=== PATIENT | female | born 1975 | race Caucasian/White ===

== ENCOUNTER 2016-04-24 12:20 | Emergency (ER) | payer OTHER ==
[~2016-04-24] VITALS: Ht 154.9 cm; Wt 59.0 kg
[2016-04-24] MEDS ORDERED: SODIUM CHLORIDE 0.9% 1,000 ML IVB ONE (12:32)
[2016-04-24 12:45] VITALS: BP 129/82
[2016-04-24 13:26] LABS: Basophils # (auto) 0 uL; Basophils % (auto) 1.2 % (0.0-2.0); DEFINITIVE VIEW TRANSMISSION; Eosinophils # (auto) 0.1 uL; Eosinophils % (auto) 2.7 % (0.0-7.0); Hematocrit 29.1 % (36.0-46.0); Hemoglobin 8.8 g/dL (12.2-16.2); Lymphocytes # (auto) 0.9 uL; Lymphocytes % (auto) 23.5 % (10.0-50.0); Mean Corpuscular Hemoglobin 19.4 pg (28.0-32.0); Mean Corpuscular Hgb Conc. 30.1 g/dL (32.0-36.0); Mean Corpuscular Volume 64.4 fL (80.0-100.0); Mean Platelet Volume 7.8 fL (7.4-10.4); Monocytes # (auto) 0.2 uL; Monocytes % (auto) 5.8 % (0.0-12.0); Neutrophils # (auto) 2.7 uL; Neutrophils % (auto) 66.8 % (37.0-80.0); Platelet Count (auto) 423 10^3/uL (140-450)
[2016-04-24 13:27] LABS: Red Cell Distribution Width 21.5 % (11.6-16.0)
[2016-04-24 13:31] LABS: Albumin 4.3 g/dL (3.4-5.0); Alkaline Phosphatase 47 U/L (45-117); Anion Gap 14 (5-15); Anisocytosis Moderate; Aspartate Aminotransferase 8 U/L (15-37); BUN/Creatinine Ratio 7.3; Bilirubin, Total 0.2 mg/dL (0.2-1.0); Blood Urea Nitrogen 6 mg/dL (7-18); Calcium 8.8 mg/dL (8.5-10.1); Carbon Dioxide 24 mmol/L (21-32); Chloride 104 mmol/L (98-107); GFR African American 98 mL/min; GFR Non-African American 81 mL/min; Glucose 124 mg/dL (74-106); Hypochromia Marked; Microcytosis Marked; Platelet Estimate Adequate; Potassium 3.7 mmol/L (3.5-5.1); Sodium 142 mmol/L (136-145); Total Protein 7.7 g/dL (6.4-8.2)
== END 2016-04-24 15:52 | disposition home or self-care (01) ==
LOC: EDUNIT# 12:20 → ER 12:25
DX: R41.82 Altered mental status, unspecified (principal); R53.1 Weakness
CPT/HCPCS: 36415; 80053; 80320; 85025; 93005; 94761; 96360; 99285; G0434

== ENCOUNTER → 2016-06-19 | Outpatient (CLI) | payer BC, OTHER | END | disposition home or self-care (01) | LOC: LAB 09:22 | PROVIDERS: ATTEND Internal Medicine Cardiovascular Disease | DX: N95.1 Menopausal and female climacteric states (principal); E07.89 Other specified disorders of thyroid; E34.9 Endocrine disorder, unspecified | CPT/HCPCS: 36415; 82306; 82607; 82670; 83001; 84403; 84436; 84443; 84480; 84481; 86376 ==

== ENCOUNTER → 2016-06-20 | Outpatient (CLI) | payer BC | END | disposition home or self-care (01) | LOC: Rad HDHVI 13:25 | PROVIDERS: ATTEND Internal Medicine Cardiovascular Disease | DX: I07.1 Rheumatic tricuspid insufficiency (principal) | CPT/HCPCS: 93306 ==

== ENCOUNTER → 2016-07-17 | Outpatient (CLI) | payer BC ==
[~2016-07-17] VITALS: Ht 152.4 cm; Wt 63.5 kg
== END | disposition home or self-care (01) ==
LOC: Rad HDHVI 08:25
PROVIDERS: ATTEND Internal Medicine Cardiovascular Disease
DX: I10 Essential (primary) hypertension (principal); Z98.0 Intestinal bypass and anastomosis status; Z82.49 Family history of ischemic heart disease and other diseases of the circulatory system
CPT/HCPCS: 78452; 93017; 96374; A9500

== ENCOUNTER 2016-10-05 06:06 | Inpatient (IN) | payer BC ==
[2016-10-02 13:09] LABS: CONDITION Y; DEFINITIVE SEE PRINTOUT; Hematocrit 29.3 % (36.0-46.0); Hemoglobin 8.9 g/dL (12.2-16.2); Mean Corpuscular Hemoglobin 19.1 pg (28.0-32.0); Mean Corpuscular Hgb Conc. 30.4 g/dL (32.0-36.0); Mean Platelet Volume 8.2 fL (7.4-10.4); Platelet Count (auto) 351 10^3/uL (140-450); Red Cell Distribution Width 19.7 % (11.6-16.0); SUSPECT SEE PRINTOUT; White Blood Cell 4.4 10^3/uL (4.4-10.8)
[2016-10-02 13:16] LABS: Urine Bilirubin Negative (Negative); Urine Color Yellow (Yellow); Urine Glucose Normal (Normal); Urine Ketone Negative (Negative); Urine Nitrite Negative (Negative); Urine RBC 2 /hpf (0 - 4); Urine Squamous Epithelial Cell MOD /hpf (<5); Urine pH 7.5 (5.0-8.0)
[2016-10-02 13:19] LABS: Urine Blood 2+ /uL (Negative)
[2016-10-02 13:23] LABS: INR 0.99 (0.9-1.15); Partial Thromboplastin Time 21.7 sec (22.64-33.71); Prothrombin Time 10.8 sec (9.37-12.3)
[2016-10-02 13:30] LABS: Metamyelocytes % 0; Myelocytes % 0; Promyelocytes % 0; Reactive Lymphocytes 0
[2016-10-02 13:37] LABS: Albumin 4.2 g/dL (3.4-5.0); BUN/Creatinine Ratio 17.9; Bilirubin, Total 0.3 mg/dL (0.2-1.0); Calcium 8.8 mg/dL (8.5-10.1); Potassium 3.5 mmol/L (3.5-5.1); Total Protein 8.4 g/dL (6.4-8.2)
[2016-10-02 13:56] LABS: Anisocytosis Moderate
[2016-10-02 13:57] LABS: Hypochromia Marked; Microcytosis Marked; Platelet Estimate Adequate
[~2016-10-05] VITALS: Ht 152.4 cm; Wt 62.0 kg
[~2016-10-05 06:06] MED LIST: CHOL1TAB29 PO; FLUO20CA19 PO; THYR60TA2 PO
[2016-10-05] MEDS ORDERED: ceFAZolin 1GM/50ML D5W 50 ML IV ONE ×2 (06:26→07:30)
[2016-10-05] MEDS ORDERED: LIDOCAINE 1% HCL (LOCAL ANESTH.) INJ 20ML MDV ONE (06:46)
[2016-10-05] MEDS ORDERED: LIDOCAINE W/ EPINEPHRINE 1 % INJ 30ML ONE (06:46)
[2016-10-05] MEDS ORDERED: BUPIVACAINE 0.25% INJ 50ML VIAL ONE (06:47)
[2016-10-05] MEDS ORDERED: GLYCOPYRROLATE 0.2 MG/ML 1ML VIAL IV ONE (07:01)
[2016-10-05] MEDS ORDERED: PHENYLEPHRINE HCL 10 MG/ML VL IV ONE (07:01)
[2016-10-05] MEDS ORDERED: ONDANSETRON HCL 4 MG/2 ML VIAL IV PRN (07:30)
[2016-10-05] MEDS: SODIUM CHLORIDE 0.9% 1,000 ML IV SCH ×2 (07:30→15:40)
[2016-10-05] MEDS ORDERED: NITROGLYCERIN 0.4 MG SL TAB SL PRN (07:30)
[2016-10-05] MEDS ORDERED: ACETAMINOPHEN 500 MG TAB PO PRN (07:30)
[2016-10-05] MEDS ORDERED: MORPHINE SULF INJ 2 MG/ML SYRINGE 1ML IV PRN ×2 (07:30→09:30)
[2016-10-05] MEDS ORDERED: MIDAZOLAM HCL 1MG/1ML-2 ML VIAL ONE (08:08)
[2016-10-05] MEDS ORDERED: fentaNYL CITRATE 5 ML ONE (08:08)
[2016-10-05] MEDS ORDERED: MEPERIDINE HCL (50 MG/ML) 1 ML VIAL ONE (08:08)
[2016-10-05] MEDS ORDERED: fentaNYL CITRATE 100 MCG/2 ML VL ONE (08:08)
[2016-10-05] MEDS ORDERED: DEXAMETHASONE SOD PHOS 10MG/1ML VIAL INJ ONE (08:55)
[2016-10-05] MEDS ORDERED: PROPOFOL 10 MG/ML 20 ML IV ONE (08:55)
[2016-10-05] MEDS ORDERED: ROCURONIUM 10MG/ML 10ML VIAL IV ONE (08:55)
[2016-10-05] MEDS ORDERED: MIDAZOLAM HCL 1MG/1ML-2 ML VIAL IV PRN (09:30)
[2016-10-05] MEDS ORDERED: KETOROLAC TROMETH 30 MG/ML 1ML VIAL IV ONE (09:30)
[2016-10-05] MEDS ORDERED: LABETALOL HCL 5 MG/ML 4ML SYRINGE IV PRN (09:30)
[2016-10-05] MEDS ORDERED: ONDANSETRON HCL 4 MG/2 ML VIAL IV ONE (09:30)
[2016-10-05] MEDS ORDERED: ePHEDrine SULFATE 50 MG/ML AMP IV PRN (09:30)
[2016-10-05] MEDS ORDERED: METHYLENE BLUE 0.5% 5MG/ML 10ml AMP IV ONE (10:33)
[2016-10-05] MEDS ORDERED: NEOSTIGMINE 1 MG/ML INJ (10mg/10ML VIAL) ONE (10:50)
[2016-10-05] MEDS ORDERED: LIDOCAINE HCL (LOCAL ANESTH.) 0.5 % 50ML MDV IJ ONE (10:52)
[2016-10-05] MEDS ORDERED: GLYCOPYRROLATE 0.2 MG/ML 1ML VIAL ONE (10:52)
[2016-10-05] MEDS: HYDROmorphone HCL 2 MG/ML VL IV PRN ×2 (11:38→11:48)
[2016-10-05 11:57] LABS: Basophils # (auto) 0 uL; Basophils % (auto) 0.4 % (0.0-2.0); CONDITION Y; DEFINITIVE SEE PRINTOUT; Eosinophils # (auto) 0.1 uL; Eosinophils % (auto) 0.8 % (0.0-7.0); Hematocrit 26.1 % (36.0-46.0); Hemoglobin 8.2 g/dL (12.2-16.2); Lymphocytes # (auto) 1.3 uL; Lymphocytes % (auto) 10.6 % (10.0-50.0); Mean Corpuscular Hemoglobin 19.6 pg (28.0-32.0); Mean Corpuscular Hgb Conc. 31.2 g/dL (32.0-36.0); Mean Corpuscular Volume 62.8 fL (80.0-100.0); Mean Platelet Volume 8.4 fL (7.4-10.4); Monocytes # (auto) 0.2 uL; Monocytes % (auto) 1.3 % (0.0-12.0); Neutrophils # (auto) 10.9 uL; Neutrophils % (auto) 86.9 % (37.0-80.0); Platelet Count (auto) 300 10^3/uL (140-450); Red Cell Distribution Width 19.6 % (11.6-16.0); White Blood Cell 12.5 10^3/uL (4.4-10.8)
[2016-10-05] MEDS ORDERED: LORazepam 2MG/ML-1ML VIAL ONE (12:05)
[2016-10-05 12:10] LABS: Anisocytosis Moderate; Microcytosis Moderate; Platelet Estimate Adequate
[2016-10-05 12:11] LABS: Hypochromia Moderate
[2016-10-05] MEDS: LORazepam 2MG/ML-1ML VIAL IV PRN ×2 (12:15→18:11)
[2016-10-05 12:40] VITALS: BP 122/80
[2016-10-05 13:00] VITALS: BP 122/80
[2016-10-05] MEDS ORDERED: FERR27TA2 PO (13:39)
[2016-10-05] MEDS ORDERED: ZOLP10TA PO (13:39)
[2016-10-05] MEDS ORDERED: CLON05T PO (13:39)
[2016-10-05] MEDS ORDERED: CYAN100042 PO (13:39)
[2016-10-05] MEDS ORDERED: HYDR-4663 PO (13:39)
[2016-10-05] MEDS: MORPHINE SULF INJ 2 MG/ML SYRINGE 1ML IV PRN ×2 (15:29→20:02)
[2016-10-05 17:00] VITALS: BP 122/75
[2016-10-05 22:00] VITALS: BP 115/75
[2016-10-05] MEDS ORDERED: KETOROLAC TROMETH 60MG/2ML VIAL IM ONE (22:15)
[2016-10-06] MEDS: LORazepam 2MG/ML-1ML VIAL IV PRN (00:27)
[2016-10-06] MEDS: SODIUM CHLORIDE 0.9% 1,000 ML IV SCH ×3 (00:27→15:30)
[2016-10-06 05:00] VITALS: BP 110/78
[2016-10-06 06:12] LABS: Basophils # (auto) 0 uL; CONDITION Y; DEFINITIVE SEE PRINTOUT; Eosinophils # (auto) 0 uL; Hematocrit 20.5 % (36.0-46.0); Lymphocytes # (auto) 1.6 uL; Lymphocytes % (auto) 13.8 % (10.0-50.0); Mean Corpuscular Hemoglobin 19.5 pg (28.0-32.0); Mean Corpuscular Hgb Conc. 31.3 g/dL (32.0-36.0); Mean Corpuscular Volume 62.3 fL (80.0-100.0); Mean Platelet Volume 8.6 fL (7.4-10.4); Monocytes # (auto) 0.6 uL; Monocytes % (auto) 5.5 % (0.0-12.0); Neutrophils # (auto) 9.3 uL; Neutrophils % (auto) 80.7 % (37.0-80.0); Platelet Count (auto) 218 10^3/uL (140-450); Red Cell Distribution Width 19.8 % (11.6-16.0); White Blood Cell 11.5 10^3/uL (4.4-10.8)
[2016-10-06 06:27] LABS: Hemoglobin 6.4 g/dL (12.2-16.2)
[2016-10-06] MEDS: MORPHINE SULFATE 4 MG/ML SYRG IV PRN ×3 (07:56→16:20)
[2016-10-06 08:04] LABS: Basophils # (auto) 0 uL; Basophils % (auto) 0.1 % (0.0-2.0); CONDITION Y; DEFINITIVE SEE PRINTOUT; Eosinophils # (auto) 0 uL; Hematocrit 20.6 % (36.0-46.0); Lymphocytes # (auto) 1.7 uL; Mean Corpuscular Hemoglobin 19.2 pg (28.0-32.0); Mean Corpuscular Hgb Conc. 30.8 g/dL (32.0-36.0); Mean Corpuscular Volume 62.2 fL (80.0-100.0); Mean Platelet Volume 8.1 fL (7.4-10.4); Monocytes # (auto) 0.6 uL; Neutrophils % (auto) 79.9 % (37.0-80.0); Platelet Count (auto) 239 10^3/uL (140-450); Red Cell Distribution Width 19.3 % (11.6-16.0); White Blood Cell 11.3 10^3/uL (4.4-10.8)
[2016-10-06 08:22] LABS: Hemoglobin 6.3 g/dL (12.2-16.2)
[2016-10-06 08:47] LABS: Hypochromia Moderate; Microcytosis Moderate; Platelet Estimate Adequate
[2016-10-06 08:48] LABS: Anisocytosis Moderate; Ovalocytes FEW; Tear Drop Cells FEW
[2016-10-06 09:00] VITALS: BP 127/82
[2016-10-06] MEDS ORDERED: ZOLPIDEM TARTRATE 5 MG TAB PO PRN (12:15)
[2016-10-06] MEDS ORDERED: CHOLECALCIFEROL (VITD3) 1,000 UNIT TAB PO ONE (12:30)
[2016-10-06] MEDS ORDERED: CYANOCOBALAMIN 500 MCG TAB PO ONE (12:30)
[2016-10-06] MEDS ORDERED: FLUoxetine HCL 20 MG CAP PO ONE (12:30)
[2016-10-06 12:57] LABS: Hematocrit 20.5 % (36.0-46.0)
[2016-10-06 13:00] VITALS: BP 121/71
[2016-10-06 13:07] LABS: Hemoglobin 6.4 g/dL (12.2-16.2)
[2016-10-06] MEDS: clonazePAM 0.5 MG TAB PO SCH ×2 (14:07→22:01)
[2016-10-06 16:27] VITALS: BP 119/70
[2016-10-06] MEDS: FERROUS SULFATE 325 MG TAB PO SCH (18:46)
[2016-10-06 22:00] VITALS: BP 110/62
[2016-10-06] MEDS: HYDROcodone-ACET 10/325MG TAB PO PRN (22:01)
[2016-10-07] MEDS: MORPHINE SULFATE 4 MG/ML SYRG IV PRN ×2 (02:58→09:31)
[2016-10-07] MEDS: SODIUM CHLORIDE 0.9% 1,000 ML IV SCH ×2 (03:00→09:00)
[2016-10-07 05:00] VITALS: BP 113/76
[2016-10-07] MEDS: HYDROcodone-ACET 10/325MG TAB PO PRN (06:15)
[2016-10-07] MEDS: clonazePAM 0.5 MG TAB PO SCH (06:15)
[2016-10-07] MEDS: FERROUS SULFATE 325 MG TAB PO SCH (08:59)
[2016-10-07 09:47] VITALS: BP 118/77
[2016-10-07] MEDS ORDERED: CYANOCOBALAMIN 500 MCG TAB PO SCH (10:00)
[2016-10-07] MEDS ORDERED: FLUoxetine HCL 20 MG CAP PO SCH (10:00)
[2016-10-07] MEDS ORDERED: CHOLECALCIFEROL (VITD3) 1,000 UNIT TAB PO SCH (10:00)
[2016-10-07] MEDS ORDERED: THYROID 60 MG TAB PO SCH (10:00)
== END 2016-10-07 09:50 | disposition home or self-care (01) | DRG 743 ==
LOC: SUR 06:06 → WEST WING 06:07
PROVIDERS: ADMIT Obstetrics & Gynecology; ATTEND Obstetrics & Gynecology
PROC: 0UTC7ZZ Resection of Cervix, Via Natural or Artificial Opening (ICD-10-PCS; 2016-10-05)
PROC: 0UT77ZZ Resection of Bilateral Fallopian Tubes, Via Natural or Artificial Opening (ICD-10-PCS; 2016-10-05)
PROC: 0UT27ZZ Resection of Bilateral Ovaries, Via Natural or Artificial Opening (ICD-10-PCS; 2016-10-05)
PROC: 8E0W7CZ Robotic Assisted Procedure of Trunk Region, Via Natural or Artificial Opening (ICD-10-PCS; 2016-10-05)
PROC: 0UT97ZZ Resection of Uterus, Via Natural or Artificial Opening (ICD-10-PCS; principal; 2016-10-05 08:01)
DX: D25.9 Leiomyoma of uterus, unspecified (principal); N93.9 Abnormal uterine and vaginal bleeding, unspecified; D64.9 Anemia, unspecified
CPT/HCPCS: 36415; 80053; 81001; 84702; 85007; 85014; 85018; 85025; 85027; 85610; 85730; 86850; 86900; 86901; 86920; 87086; J0690; J1100; J1885; J2001; J2250; J2405; J2704; J3490